=== PATIENT | male | born 1980 | race Caucasian/White ===

== ENCOUNTER 2016-10-28 19:09 | Emergency (ER) | payer OTHER | END 2016-10-28 22:28 | disposition home or self-care (01) | LOC: ER1 19:09 | DX: L02.11 Cutaneous abscess of neck (principal); I10 Essential (primary) hypertension; F17.290 Nicotine dependence, other tobacco product, uncomplicated; Z79.899 Other long term (current) drug therapy | CPT/HCPCS: 10061; 87070; 87205; 99282 ==